=== PATIENT | male | born 1990 | race African-American/Black ===

== ENCOUNTER → 2018-02-24 | Outpatient (CLI) | payer OTHER ==
[~2018-02-24] MED LIST: AMIT10TA PO; NAPR-683 PO
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
== END | disposition home or self-care (01) ==
LOC: PNCL 09:02
PROVIDERS: ATTEND Anesthesiology
DX: M54.5 Low back pain (principal); M19.90 Unspecified osteoarthritis, unspecified site; Z82.49 Family history of ischemic heart disease and other diseases of the circulatory system; Z79.899 Other long term (current) drug therapy; V49.9XXD Car occupant (driver) (passenger) injured in unspecified traffic accident, subsequent encounter
CPT/HCPCS: G0463

== ENCOUNTER → 2018-03-03 | Outpatient (CLI) | payer OTHER ==
[~2018-03-03] MED LIST changes: -AMIT10TA PO; +BUPIVACAINE MPF 0.25% 10 ML VIAL. ONE; +IOHEXOL 180 MG/ML 10 ML VIAL. ONE; +methylPREDNISolone ACETATE 40 MG/ML VIAL. ONE; +methylPREDNISolone ACETATE 80 MG/ML VIAL. ONE
--- NOTE | 2018-03-03 12:24 | PAIN ---
DATE OF SERVICE: 03/03/2018 PROGRESS NOTE FOR PAIN CLINIC DIAGNOSES: Lumbar and lumbosacral spondylosis and lumbar degenerative disk disease. HISTORY OF PRESENT ILLNESS: The patient is a 27-year-old male who returns for followup status post initial evaluation and preauthorization for bilateral facet joint injections of the lumbar spine. The patient has acquired the preauthorization and would like to proceed, still pain across the low back bilaterally, right essentially equal to left at this time. The patient reports it is worse with walking, standing, change in positions, rotating the spine especially with extension and rearward extension and axial loading of the low back. The patient reports it is a 7 on a scale of 10 at all times, average, worst and least and is a 7 today. The patient reports it is aching, becoming more constant, bothered him with sleep occasionally but not every night; worse with sitting, walking, standing and change in positions. The patient reports it is an aching pain, is becoming more constant, shooting at times across the low back. The patient reports no new motor or sensory deficits and no new bowel or bladder incontinence or other complaints. PHYSICAL EXAMINATION: VITAL SIGNS: The patient's blood pressure 118/75, pulse 80, respirations 16, temperature is 97.5 degrees Fahrenheit and weight is 164 pounds. GENERAL: The patient is awake, alert, oriented, appropriate and very pleasant demeanor. HEENT: Head shows normocephalic and atraumatic. Extraocular movements are intact and symmetrical. Oral cavity: Mucous membranes moist and pink. Dentition is intact. NECK: Shows anterior throat supple without palpable lymphadenopathy noted. Swallow reflex symmetrical. CHEST: Shows normal on inspection. Breath sounds clear to auscultation bilaterally. HEART: Shows S1 and S2 clear. No murmurs auscultated. ABDOMEN: Soft, nontender and nondistended. No palpable organomegaly is noted. No rebound or guarding demonstrated. BACK: Shows spine grossly in the midline. Normal-appearing thoracic kyphosis and lumbar lordotic curvature. Lumbar paraspinous muscle shows symmetrical on inspection, on palpation shows some moderate tenderness diffusely but only diffusely with deeper palpation of the low lumbar distribution bilaterally. No atrophy or hypertrophy. No trigger points. The patient has good rotational motion with moderate tenderness with extension as well as right and left lateral rotation but right equal to left essentially. EXTREMITIES: The patient's lower extremities show deep tendon reflexes 2+ in the patellar and tendo-calcaneus tendons are 1+. Motor exam is strong with 5/5 dorsiflexion, extension, quadriceps and hamstring flexion equal. Peripheral pulses are 1+ posterior tibial. No peripheral edema is noted bilaterally. Options were discussed with the patient. The patient's old chart was reviewed as well as her current medication regimen updated. Current review of systems updated today as well. We will proceed with bilateral L4-L5 and L5-S1 facet joint injections using fluoroscopic guidance. Risks were discussed including but not limited to bleeding, infection, possibility of epidural hematoma, subsequent neurological compromise, dural puncture headache, spinal cord and/or nerve damage, side effects of steroid medication and poor results regarding pain control. The patient understands and wished to proceed. The patient will return to the clinic in approximately 2 weeks for followup, was counseled as to return appointment, activity level and side effects to be aware of. DIAGNOSIS: Lumbar and lumbosacral spondylosis. PROCEDURES: Bilateral L4-L5 and L5-S1 facet joint injection using C-arm fluoroscopic guidance under sterile prep and drape using local anesthetic. MEDICATION INJECTED: A total of 120 mg Depo-Medrol plus 4 mL of 0.25% bupivacaine after negative aspiration and 2 mL Isovue for contrast. CONDITION AT DISCHARGE: Stable. The patient tolerated the procedure well and had no complications. MINOO DAWN MD DR: ASHLYN/lisseth JOB#: [id number] / [id number]
== END | disposition home or self-care (01) ==
LOC: PNCL 09:13
PROVIDERS: ATTEND Anesthesiology
DX: M47.817 Spondylosis without myelopathy or radiculopathy, lumbosacral region (principal); M51.36 Other intervertebral disc degeneration, lumbar region
CPT/HCPCS: 64493; 64494; J1030; J1040; J3490; Q9965

== ENCOUNTER → 2018-03-17 | Outpatient (CLI) | payer OTHER ==
[~2018-03-17] MED LIST changes: +AMIT10TA PO; -BUPIVACAINE MPF 0.25% 10 ML VIAL. ONE; -IOHEXOL 180 MG/ML 10 ML VIAL. ONE; -methylPREDNISolone ACETATE 40 MG/ML VIAL. ONE; -methylPREDNISolone ACETATE 80 MG/ML VIAL. ONE
--- NOTE | 2018-03-17 10:14 | PAIN ---
DATE OF SERVICE: 03/17/2018 PROGRESS NOTE FOR PAIN CLINIC DIAGNOSES: Lumbar radiculopathy with lumbar degenerative disk disease and lumbar spondylosis. HISTORY OF PRESENT ILLNESS: The patient is a 27-year-old male who returns for followup status post bilateral lumbar facet joint injections at both L4-L5 and L5-S1 bilaterally. The patient reports no significant improvement at all, even for a day or two, after the injections. The pain is still exactly the same in the low back, but occasional twinges more on the left than the right into the posterior lateral thigh. The patient reports this is fairly new radiating pain; since the injections, he has noticed this more. The patient reports it is sometimes worse at night, but generally does not awaken him from sleep. Better with sitting and standing for prolonged periods, decreased with lying down initially, but then it can awaken him from sleep occasionally. The patient reports no new motor or sensory deficits. No new bowel or bladder incontinence. He reports it is becoming more constant, more aching. Rates it as 6 on a scale of 10 at all times, average, worst and least and is a 6 today. The patient reports no new motor or sensory deficits. No new bowel or bladder incontinence or other complaints. PHYSICAL EXAMINATION: VITAL SIGNS: Today, the patient's blood pressure is 139/78, pulse 72, respirations 18 and temperature 98.3 degrees Fahrenheit. Height 6 feet 2 inches, weight is 163 pounds. GENERAL: The patient is awake, alert, oriented, appropriate, very pleasant demeanor. HEENT EXAMINATION: Shows normocephalic, atraumatic. Extraocular movements are intact and symmetrical. Oral cavity, mucous membranes moist and pink. Dentition is intact. NECK: Shows anterior throat supple, without palpable lymphadenopathy noted. Swallow reflex is symmetrical. CHEST: Shows normal on inspection. Breath sounds are clear to auscultation bilaterally. HEART: Shows S1, S2 clear. No murmurs auscultated. ABDOMEN: Soft, nontender and nondistended. No palpable organomegaly is noted. No rebound or guarding demonstrated. BACK: Shows spine grossly in the midline. Normal-appearing thoracic kyphosis and lumbar lordotic curvature. Lumbar paraspinous musculature is firm and symmetrical throughout the upper, middle and lower distribution of the paraspinous musculature, but only diffusely tender in the lower distribution bilaterally and again diffusely, without radiation or asymmetry. No tenderness over the spinous processes, sacrum or sacroiliac regions. The patient has good rotational motion of the lumbar spine, both laterally as well as in flexion and extension, without significant pain, except some moderate pain with extension, but again only moderate from previous exam. EXTREMITIES: Lower extremities show deep tendon reflexes 2+ in the patella and tendo calcaneus tendons are 1+. Motor exam is strong with 5/5 dorsiflexion, extension, quadriceps and hamstring flexion equal. Straight leg raise is negative bilaterally as is Gaenslen's and Billy's maneuvers bilaterally. Options were discussed with the patient. The patient's old chart was reviewed as was his current medication regimen updated. Current review of systems updated today as well. As he had no significant relief with facet joint injections, we will move forward with lumbar epidural steroid injections, as he is having some radicular pain intermittently in the left lower extremity, are L4-L5 dermatomal distribution. We will preauthorize the patient for a lumbar epidural injection at the L4-L5 level. Once this is approved, we will have the patient return and proceed with the lumbar epidural steroid injection. In the meantime, the patient will maintain stretching and strengthening exercises, maintain activity as tolerated with caution with lifting and body mechanics, etc. The patient acknowledges this. We will have him follow up in approximately 1 week with a lumbar epidural steroid injection at that time. MINOO DAWN MD DR: ASHLYN/lisseth JOB#: [id number] / [id number] Dr. kO Hartmann
== END | disposition home or self-care (01) ==
LOC: PNCL 07:58
PROVIDERS: ATTEND Anesthesiology
DX: M51.16 Intervertebral disc disorders with radiculopathy, lumbar region (principal); M47.896 Other spondylosis, lumbar region
CPT/HCPCS: G0463